=== PATIENT | male | born 1975 | race Asian ===

== ENCOUNTER 2021-01-15 10:32 | Outpatient (CLI) | payer BC | END 2021-01-15 10:33 | disposition home or self-care (01) | LOC: SCSRAD 10:32 | DX: R51.9 Headache, unspecified (principal); M54.2 Cervicalgia; M47.812 Spondylosis without myelopathy or radiculopathy, cervical region | CPT/HCPCS: 72040 ==

== ENCOUNTER 2021-03-02 08:22 | Outpatient (CLI) | payer BC | END 2021-03-02 08:23 | disposition home or self-care (01) | LOC: SCSRAD 08:22 | DX: R00.1 Bradycardia, unspecified (principal); R94.31 Abnormal electrocardiogram [ECG] [EKG]; Z86.79 Personal history of other diseases of the circulatory system | CPT/HCPCS: 71046 ==

== ENCOUNTER 2025-10-03 08:06 | Outpatient (CLI) | payer OTHER | END 2025-10-03 08:07 | disposition home or self-care (01) | LOC: BICRAD 08:06 | DX: M25.512 Pain in left shoulder (principal); F17.200 Nicotine dependence, unspecified, uncomplicated | CPT/HCPCS: 71046 ==